=== PATIENT | male | born 1965 | race Caucasian/White ===

== ENCOUNTER → 2017-09-27 | Outpatient (CLI) | payer BC ==
--- NOTE | 2017-09-27 12:42 | US ---
EXAMINATION TYPE: US abdomen complete DATE OF EXAM: 09/27/2017 COMPARISON: NONE CLINICAL HISTORY: R10.9 Abdominal pain. EXAM MEASUREMENTS: Liver Length: 13.7 cm Gallbladder Wall: 0.3 cm CBD: 0.3 cm Spleen: 12.5 cm Right Kidney: 10.8 x 4.7 x 5.4 cm Left Kidney: 12.4 x 6.3 x 5.2 cm Extensive midline bowel gas Pancreas: Obscured by bowel gas Liver: wnl Gallbladder: mobile small stones vs echogenic debris Evidence for sonographic Milian's sign: no CBD: wnl Spleen: wnl Right Kidney: wnl Left Kidney: prominent dromedary hump vs mass, measures approximately 3.1 cm in diameter. Upper IVC: wnl Abd Aorta: Portions visualized wnl, mostly obscured by overlying bowel gas IMPRESSION: 1. Cholelithiasis and/or sludge. 2. Isoechoic rounded exophytic area in the mid left kidney. Dromedary hump is within the differential . Underlying mass is not entirely excluded. Recommend contrast CT for additional evaluation.
== END | disposition home or self-care (01) ==
LOC: RADUSWWP 07:29
PROVIDERS: ATTEND Family Medicine
DX: R93.422 Abnormal radiologic findings on diagnostic imaging of left kidney (principal)
CPT/HCPCS: 76700

== ENCOUNTER 2019-05-19 18:45 | Emergency (ER) | payer BC ==
[2019-05-19] MEDS ORDERED: IBUPROFEN 600 MG TAB PO STA (19:07)
[2019-05-19] MEDS ORDERED: ACETAMINOPHEN TAB 500 MG TAB PO STA (19:07)
--- NOTE | 2019-05-19 19:16 | ED ---
General Adult HPI - General Source: patient, RN notes reviewed, old records reviewed Mode of arrival: ambulatory Limitations: no limitations <Edward Day - Last Filed: 05/19/19 20:11> - History of Present Illness -: days(s) (9) Location: chest Radiation: non-radiation, other (No pain) Consistency: intermittent Improves with: none Worsens with: movement Associated Symptoms: cough, fever/chills, loss of appetite, nausea/vomiting, shortness of breath <Edward Powell - Last Filed: 05/19/19 21:57> - General Chief complaint: Fever Stated complaint: fever/cough Time Seen by Provider: 05/19/19 18:47 - History of Present Illness Initial comments: This is a 53-year-old male who presents to the emergency department with a 9 day history of cough. Patient states he was tested for coronavirus on Saturday but has not found his results back from [facility]. 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 Patient states last night he was in the bathroom passed out woke up had considerable amount of diarrhea and then woke up today with a fever and felt more short of breath so he decided come to the emergency department to be further evaluated. Patient denies any chest pain. Patient denies any lightheadedness or dizziness today. Patient denies abdominal pain patient denies nausea vomiting. (Edward Day) - Related Data Home Medications Medication Instructions Recorded Confirmed Acetaminophen Tab [Tylenol] 650 mg PO Q4H PRN 05/19/19 05/19/19 Hydrochlorothiazide [Hydrodiuril] 25 mg PO DAILY 05/19/19 05/19/19 Losartan Potassium 100 mg PO DAILY 05/19/19 05/19/19 Meloxicam [Mobic] 15 mg PO DAILY 05/19/19 05/19/19 Previous Rx's Medication Instructions Recorded Azithromycin [Zithromax Z-pack] 0 mg PO DIRECTED #1 pack 05/19/19 Allergies Allergy/AdvReac Type Severity Reaction Status Date / Time No Known Allergies Allergy Verified 05/19/19 19:33 Review of Systems ROS Other: All systems not noted in ROS Statement are negative. <Edward Day - Last Filed: 05/19/19 20:11> ROS Other: All systems not noted in ROS Statement are negative. <Edward Powell - Last Filed: 05/19/19 21:57> ROS Statement: Those systems with pertinent positive or pertinent negative responses have been documented in the HPI. Past Medical History Past Medical History: No Reported History History of Any Multi-Drug Resistant Organisms: None Reported Past Surgical History: Bariatric Surgery Additional Past Surgical History / Comment(s): lap band Past Psychological History: No Psychological Hx Reported Smoking Status: Never smoker Past Alcohol Use History: Occasional Past Drug Use History: None Reported <Edward Day - Last Filed: 05/19/19 20:11> General Exam Limitations: no limitations <Edward Day - Last Filed: 05/19/19 20:11> - General Exam Comments Initial Comments: GENERAL: Patient is well-developed and well-nourished. Patient is nontoxic and well- hydrated and is in mild distress. ENT: Neck is soft and supple. No significant lymphadenopathy is noted. Oropharynx is clear. Moist mucous membranes. Neck has full range of motion without eliciting any pain. There is no thyroid enlargement and no masses were felt. EYES: The sclera were anicteric and conjunctiva were pink and moist. Extraocular movements were intact and pupils were equal round and reactive to light. Eyelids were unremarkable. PULMONARY: Patient's got crackles in both bases more on the left than the right CARDIOVASCULAR: There is a regular rate and rhythm without any murmurs gallops or rubs. ABDOMEN: Soft and nontender with normal bowel sounds. SKIN: Skin is clear with no lesions or rashes and otherwise unremarkable. NEUROLOGIC: Patient is alert and oriented x3. Cranial nerves II through XII are grossly intact. Motor and sensory are also intact. Normal speech, volume and content. Symmetrical smile. MUSCULOSKELETAL: Normal extremities with adequate strength and full range of motion. LYMPHATICS: No significant lymphadenopathy is noted PSYCHIATRIC: Normal psychiatric evaluation. (Edward Day) Course <Edward Powell - Last Filed: 05/19/19 21:57> Vital Signs 05/19/19 05/19/19 18:47 21:04 Temperature 101.3 F H 100.4 F H Pulse Rate 103 H 85 Respiratory 22 18 Rate Blood Pressure 141/85 134/91 O2 Sat by Pulse 97 97 Oximetry - Reevaluation(s) Reevaluation #1: 05/19/19 21:56 Medical records reviewed (Edward Powell) Reevaluation #2: 05/19/19 21:56 Patient at length regarding symptoms informed of findings (Edward Powell) Reevaluation #3: 05/19/19 21:56 Patient reassessed with no significant difficulties in breathing, decision- making patient would like discharge at this time and return if symptoms worsen (Edward Powell) Medical Decision Making - Lab Data Result diagrams: 05/19/19 19:05 05/19/19 19:05 <Edward Day - Last Filed: 05/19/19 20:11> - Lab Data Result diagrams: 05/19/19 19:05 05/19/19 19:05 - Radiology Data Radiology results: report reviewed (Chest x-ray maybe bilateral changes, CT chest is positive for covid type findings), image reviewed <Edward Powell - Last Filed: 05/19/19 21:57> - Medical Decision Making EKG shows normal sinus rhythm at 96 bpm NC interval 148 QRSs 84 QT interval 344 QTC is 434. Patient's EKG shows no ST segment elevation or depression. Chest x-ray shows some atelectasis possibly a CAT scan will be done to further identify this. Dr. Powell will be taking over the care of this patient at 8:15. (Edward Day) 50 female DF for evaluation positive for hemoglobin symptomatic of COVID symptoms as well as time course as well as CT showing positive COVID findings. Patient is told to self 14 as he has been doing limit exposure family members which were also quarantined as well as to continue to monitor a stress test return if symptoms worsen patient's about shortness of breath currently believes he feels good, patient does have outpatient test which has been done for positive covert and is awaiting results. At this time will not test patient secondary to patient Muriel being tested, patient will be discharged home (Edward Powell) - Lab Data Lab Results 05/19/19 05/19/19 05/19/19 Range/Units 19:05 19:05 19:05 WBC 7.3 (3.8-10.6) k/uL RBC 5.17 (4.30-5.90) m/uL Hgb 15.7 (13.0-17.5) gm/dL Hct 44.7 (39.0-53.0) % MCV 86.3 (80.0-100.0) fL MCH 30.3 (25.0-35.0) pg MCHC 35.1 (31.0-37.0) g/dL RDW 13.2 (11.5-15.5) % Plt Count 233 (150-450) k/uL Neutrophils % 74 % Lymphocytes % 16 % Monocytes % 7 % Eosinophils % 0 % Basophils % 0 % Neutrophils # 5.4 (1.3-7.7) k/uL Lymphocytes # 1.2 (1.0-4.8) k/uL Monocytes # 0.5 (0-1.0) k/uL Eosinophils # 0.0 (0-0.7) k/uL Basophils # 0.0 (0-0.2) k/uL PT 10.5 (9.0-12.0) sec INR 1.0 (<1.2) APTT 24.2 (22.0-30.0) sec Sodium 138 (137-145) mmol/L Potassium 3.9 (3.5-5.1) mmol/L Chloride 97 L (98-107) mmol/L Carbon Dioxide 31 H (22-30) mmol/L Anion Gap 10 mmol/L BUN 15 (9-20) mg/dL Creatinine 1.00 (0.66-1.25) mg/dL Est GFR (CKD-EPI)AfAm >90 (>60 ml/min/1.73 sqM) Est GFR (CKD-EPI)NonAf 86 (>60 ml/min/1.73 sqM) Glucose 114 H (74-99) mg/dL Plasma Lactic Acid [place] (0.7-2.0) mmol/L Calcium 9.0 (8.4-10.2) mg/dL Total Bilirubin 0.6 (0.2-1.3) mg/dL AST 74 H (17-59) U/L ALT 39 (4-49) U/L Alkaline Phosphatase 46 (38-126) U/L Troponin I (0.000-0.034) ng/mL Total Protein 7.6 (6.3-8.2) g/dL Albumin 4.3 (3.5-5.0) g/dL Urine Color Urine Appearance (Clear) Urine pH (5.0-8.0) Ur Specific [place] (1.001-1.035) Urine Protein (Negative) Urine Glucose (UA) (Negative) Urine Ketones (Negative) Urine Blood (Negative) Urine Nitrite (Negative) Urine Bilirubin (Negative) Urine Urobilinogen (<2.0) mg/dL Ur Leukocyte Esterase (Negative) Urine RBC (0-5) /hpf Urine WBC (0-5) /hpf Hyaline Casts (0-2) /lpf Urine Mucus (None) /hpf 05/19/19 05/19/19 05/19/19 Range/Units 19:05 19:05 20:00 WBC (3.8-10.6) k/uL RBC (4.30-5.90) m/uL Hgb (13.0-17.5) gm/dL Hct (39.0-53.0) % MCV (80.0-100.0) fL MCH (25.0-35.0) pg MCHC (31.0-37.0) g/dL RDW (11.5-15.5) % Plt Count (150-450) k/uL Neutrophils % % Lymphocytes % % Monocytes % % Eosinophils % % Basophils % % Neutrophils # (1.3-7.7) k/uL Lymphocytes # (1.0-4.8) k/uL Monocytes # (0-1.0) k/uL Eosinophils # (0-0.7) k/uL Basophils # (0-0.2) k/uL PT (9.0-12.0) sec INR (<1.2) APTT (22.0-30.0) sec Sodium (137-145) mmol/L Potassium (3.5-5.1) mmol/L Chloride (98-107) mmol/L Carbon Dioxide (22-30) mmol/L Anion Gap mmol/L BUN (9-20) mg/dL Creatinine (0.66-1.25) mg/dL Est GFR (CKD-EPI)AfAm (>60 ml/min/1.73 sqM) Est GFR (CKD-EPI)NonAf (>60 ml/min/1.73 sqM) Glucose (74-99) mg/dL Plasma Lactic Acid [place] 1.1 (0.7-2.0) mmol/L Calcium (8.4-10.2) mg/dL Total Bilirubin (0.2-1.3) mg/dL AST (17-59) U/L ALT (4-49) U/L Alkaline Phosphatase (38-126) U/L Troponin I <0.012 (0.000-0.034) ng/mL Total Protein (6.3-8.2) g/dL Albumin (3.5-5.0) g/dL Urine Color Yellow Urine Appearance Clear (Clear) Urine pH 6.0 (5.0-8.0) Ur Specific [place] 1.044 H (1.001-1.035) Urine Protein 2+ H (Negative) Urine Glucose (UA) Negative (Negative) Urine Ketones Negative (Negative) Urine Blood Trace H (Negative) Urine Nitrite Negative (Negative) Urine Bilirubin Negative (Negative) Urine Urobilinogen 2.0 (<2.0) mg/dL Ur Leukocyte Esterase Negative (Negative) Urine RBC 1 (0-5) /hpf Urine WBC 1 (0-5) /hpf Hyaline Casts 3 H (0-2) /lpf Urine Mucus Many H (None) /hpf Disposition <Edward Day - Last Filed: 05/19/19 20:11> Is patient prescribed a controlled substance at d/c from ED?: No <Edward Powell - Last Filed: 05/19/19 21:57> Clinical Impression: Fever, Viral pneumonia Narrative: Exposure to COVID (Edward Powell) Disposition: HOME SELF-CARE Instructions (If sedation given, give patient instructions): Fever in Adults ( ED), Viral Pneumonia (ED) Referrals: Rizwana Brewer MD [Primary Care Provider] - 1-2 days
[2019-05-19 19:24] LABS: Basophils % (A) 0 %; Eosinophils % (A) 0 %; HCT 44.7 % (39.0-53.0); HGB 15.7 gm/dL (13.0-17.5); Lymphocytes # (A) 1.2 k/uL (1.0-4.8); Lymphocytes % (A) 16 %; MCH 30.3 pg (25.0-35.0); MCHC 35.1 g/dL (31.0-37.0); MCV 86.3 fL (80.0-100.0); Mean Platelet Volume 7.4; Monocytes # (A) 0.5 k/uL (0-1.0); Monocytes % (A) 7 %; Neutrophils # (A) 5.4 k/uL (1.3-7.7); Neutrophils % (A) 74 %; Platelet Count 233 k/uL (150-450); RBC 5.17 m/uL (4.30-5.90); RDW 13.2 % (11.5-15.5); WBC 7.3 k/uL (3.8-10.6)
[2019-05-19 19:32] LABS: Partial Thromboplastin Time 24.2 sec (22.0-30.0); Prothrombin Time 10.5 sec (9.0-12.0)
[2019-05-19 19:34] LABS: ALT 39 U/L (4-49); AST 74 U/L (17-59); African American GFR (CKD) >90 (>60 ml/min/1.73 sqM); Albumin 4.3 g/dL (3.5-5.0); Alkaline Phosphatase 46 U/L (38-126); Anion Gap 10 mmol/L; Blood Urea Nitrogen 15 mg/dL (9-20); Carbon Dioxide 31 mmol/L (22-30); Chloride 97 mmol/L (98-107); Glucose 114 mg/dL (74-99); Non-African American GFR(CKD) 86 (>60 ml/min/1.73 sqM); Potassium 3.9 mmol/L (3.5-5.1); Sodium 138 mmol/L (137-145); Total Bilirubin 0.6 mg/dL (0.2-1.3); Total Protein 7.6 g/dL (6.3-8.2)
[2019-05-19] MEDS: SODIUM CHLORIDE 0.9% 500 ML 500 ML IV SCH ×2 (19:43→22:02)
--- NOTE | 2019-05-19 19:56 | XR ---
EXAMINATION TYPE: XR chest 1V portable DATE OF EXAM: 05/19/2019 COMPARISON: NONE HISTORY: Fever, congestion TECHNIQUE: Single frontal view of the chest is obtained. FINDINGS: Patient is rotated. There are overlying cardiac leads. Exam is expiratory. Question some neil bsegmental basilar atelectatic change. There is no focal air space opacity, pleural effusion, or pneu mothorax seen. The cardiac silhouette size is within normal limits. The osseous structures are int act. IMPRESSION: Expiratory rotated exam. Follow-up as indicated. Possible subsegmental basilar atelectat ic changes.
[2019-05-19 20:14] LABS: Appearance,Urine Clear (Clear); Bilirubin,Urine Negative (Negative); Blood,Urine Trace (Negative); Color,Urine Yellow; Glucose,Urine (UA) Negative (Negative); Hyaline Casts,Urine 3 /lpf (0-2); Ketones,Urine Negative (Negative); Leukocyte Esterase,Urine Negative (Negative); Mucus,Urine Many /hpf; Nitrite,Urine Negative (Negative); Protein,Urine 2+ (Negative); RBC,Urine 1 /hpf (0-5); Specific Gravity,Urine 1.044 (1.001-1.035); WBC,Urine 1 /hpf (0-5)
[2019-05-19 21:04] VITALS: PULSE 85; RESP 18
--- NOTE | 2019-05-19 21:29 | CT ---
EXAMINATION TYPE: CT chest angio for PE DATE OF EXAM: 05/19/2019 COMPARISON: HISTORY: Shortness of breath. Cough. Tested for covid. CT DLP: 641.3 mGycm Automated exposure control for dose reduction was used. CONTRAST: CT Chest for pulmonary embolism performed with with IV Contrast, patient injected with 100 mL of Isov ue 370. FINDINGS: LUNGS: Multiple peripheral groundglass opacities are present within the lungs. MEDIASTINUM: There is satisfactory enhancement of the pulmonary artery and its branches, there is no CT evidence for pulmonary embolism. There are no greater than 1 cm hilar or mediastinal lymph nodes. No pericardial effusion is seen. AORTA: No additional significant abnormality is seen. OTHER: There is a spinal curvature present, thoracic spondylosis is present. Left hand is in place. IMPRESSION: Multiple peripheral groundglass opacities may be indicative of underlying viral pneumonia, covid infe ction.
[2019-05-19] MEDS ORDERED: AZITHROMYCIN 500 MG in SODIUM CHLORIDE 0.9% 250 ML IVPB STA (21:53)
[2019-05-19 23:37] VITALS: BP 138/79; TEMP 99.7
== END 2019-05-19 23:35 | disposition home or self-care (01) ==
LOC: EC 18:45
DX: J12.9 Viral pneumonia, unspecified (principal); J98.11 Atelectasis; Z20.828 Contact with and (suspected) exposure to other viral communicable diseases; Z98.84 Bariatric surgery status
CPT/HCPCS: 36415; 93005; 80053; 83605; 84484; 85025; 85610; 85730; 81001; 87040; 71045; 71275; 99284; 96365; 96367; J0456; J0696; Q9967

== ENCOUNTER → 2019-07-06 | Outpatient (CLI) | payer BC ==
[2019-07-06 12:27] LABS: Basophils % (A) 1 %; Eosinophils # (A) 0.1 k/uL (0-0.7); Eosinophils % (A) 1 %; HCT 47.1 % (39.0-53.0); Lymphocytes # (A) 1.7 k/uL (1.0-4.8); Lymphocytes % (A) 24 %; MCH 29.6 pg (25.0-35.0); MCHC 32.5 g/dL (31.0-37.0); MCV 91.3 fL (80.0-100.0); Mean Platelet Volume 6.8; Monocytes # (A) 0.4 k/uL (0-1.0); Monocytes % (A) 6 %; Neutrophils # (A) 4.7 k/uL (1.3-7.7); Neutrophils % (A) 66 %; Platelet Count 282 k/uL (150-450); RBC 5.16 m/uL (4.30-5.90); RDW 13.5 % (11.5-15.5)
[2019-07-06 12:38] LABS: HGB 15.3 gm/dL (13.0-17.5)
[2019-07-06 12:45] LABS: ALT 26 U/L (4-49); AST 20 U/L (17-59); African American GFR (CKD) >90 (>60 ml/min/1.73 sqM); Albumin 4.6 g/dL (3.5-5.0); Albumin/Globulin Ratio 1.4; Alkaline Phosphatase 42 U/L (38-126); Anion Gap 10 mmol/L; Blood Urea Nitrogen 12 mg/dL (9-20); Calcium 9.7 mg/dL (8.4-10.2); Carbon Dioxide 27 mmol/L (22-30); Chloride 100 mmol/L (98-107); Globulin 3.3 g/dL; Glucose 101 mg/dL (74-99); Non-African American GFR(CKD) >90 (>60 ml/min/1.73 sqM); Potassium 4.3 mmol/L (3.5-5.1); Sodium 137 mmol/L (137-145); Total Bilirubin 1.1 mg/dL (0.2-1.3); Total Protein 7.9 g/dL (6.3-8.2)
[2019-07-06 13:01] LABS: Creatine Kinase MB 1.3 ng/mL (0.0-2.4); Troponin I <0.012 ng/mL (0.000-0.034)
== END | disposition home or self-care (01) ==
LOC: LABWHC1 11:36
PROVIDERS: ATTEND Nurse Practitioner Adult Health
DX: R06.09 Other forms of dyspnea (principal); R07.9 Chest pain, unspecified
CPT/HCPCS: 36415; 80053; 82553; 83880; 84484; 85025; 85379

== ENCOUNTER → 2021-01-27 | Outpatient (CLI) | payer BC ==
--- NOTE | 2021-01-27 11:52 | CT ---
EXAMINATION TYPE: CT abdomen pelvis wo con DATE OF EXAM: 01/27/2021 COMPARISON: None INDICATION: left flank pain DLP: 672.1 mGycm, Automated exposure control for dose reduction was used. CONTRAST: 0 mL of Isovue 300. Study performed without Oral Contrast TECHNIQUE: Axial images were obtained from above the diaphragm to the pubic rami in the axial plane a t 5 mm thick sections. Reconstructed images are reviewed on the computer in the coronal plane. FINDINGS: Limited CT sections are obtained the lung bases. The lung bases are clear. Coronary calcifications present. CT ABDOMEN: LAP-BAND is present. Liver: Normal Spleen: Normal Pancreas: Normal Adrenal glands: The adrenal glands are normal. Gallbladder: Small gravel is present within the gallbladder. Kidneys: No masses are evident. No hydronephrosis is present. No cysts are present. Delayed images were obtained through the kidneys, which remain unremarkable. Aorta: Vascular calcification is within the aorta. Inferior vena cava: Normal. CT PELVIS: the left hemipelvis there is a punctate calcification measuring 0.3 cm. Series 4 image 12 6. Distal ureteral stone could be considered. However, no hydroureter is evident. No renal stones are identified. Loops of bowel within the abdomen and pelvis are normal. No changes to suggest acute diverticulitis a re evident. This study is performed without oral contrast limiting bowel evaluation. Appendix: Normal as visualized. Urinary bladder: Normal. Genitourinary structures: Mild prostate hypertrophy. Osseous structures: No suspicious lytic or sclerotic lesions. IMPRESSIONS: 1. Distal left nonobstructing ureteral stone is not excluded. However, no additional suspicious find ings to suggest ureteral or renal stones are evident. No hydronephrosis or hydroureter is present. 2. No suspicious etiology to account for left flank pain
== END | disposition home or self-care (01) ==
LOC: RADCTMAIN 11:16
PROVIDERS: ATTEND Physician Assistant
DX: R10.9 Unspecified abdominal pain (principal)
CPT/HCPCS: 74176

== ENCOUNTER 2021-01-28 17:36 | Emergency (ER) | payer BC ==
[2021-01-28 19:11] VITALS: BP 151/100; RESP 16; TEMP 99.1
--- NOTE | 2021-01-28 19:11 | ED ---
Lower Extremity Injury HPI <Li Perez - Last Filed: 01/28/21 19:20> - General Source: patient, family, RN notes reviewed, old records reviewed Mode of arrival: wheelchair Limitations: no limitations - History of Present Illness -: days(s) (2) Injury: Hip: Left Type of Injury: unknown Severity scale (1-10): 9 Improves With: immobilization Worsens With: movement, palpation Associated Symptoms: snap/pop sensation, able to partially bear weight Treatments Prior to Arrival: other (Tylenol #3, CT abd pelvis) <Ricki Mosley - Last Filed: 01/28/21 23:09> - General Stated Complaint: Lt Hip Pain Time Seen by Provider: 01/28/21 20:20 - History of Present Illness Initial Comments: 55 year-old male patient presents to the emergency department for evaluation of left hip pain. Patient states that he has had hip pain for the last two days. Denies any injury. States pain is worse with movement. States he did have outpatient CT abdomen and pelvis yesterday which was negative. He states he did have some nausea and vomiting but believes this is related to the pain. Denies fever or chills. (Li Perez) This is a well-appearing 55-year-old male, alert and oriented 4, presents to the emergency room with complaints of 2 days of left hip pain. Patient denies any injuries. Patient states he first felt the [place] The pain was in his left flank at that time and into his left testicle. He states the pain was severe enough that made him nauseous and he vomited. He denies any fevers. He did go to an clinic and they suspected a kidney stone. He seen his primary care doctor and had a CAT scan of the abdomen and pelvis done today. He states that there was a kidney stone but they said it was nonobstructing. He was placed on Flomax at that time. He states that he continues to have the left hip pain and is worse with walking. He denies any testicular pain at this time. (Ricki Mosley) - Related Data Home Medications Medication Instructions Recorded Confirmed Acetaminophen Tab [Tylenol] 650 mg PO Q4H PRN 05/19/19 05/20/19 Losartan Potassium 100 mg PO DAILY 05/19/19 05/20/19 Meloxicam [Mobic] 15 mg PO DAILY 05/19/19 05/20/19 hydroCHLOROthiazide [Hydrodiuril] 25 mg PO DAILY 05/19/19 05/20/19 Previous Rx's Medication Instructions Recorded Cefuroxime Axetil [Ceftin] 500 mg PO BID 5 Days #10 tab 05/23/19 Hydroxychloroquine Sulfate 200 mg PO BID 4 Days #8 tab 05/23/19 [Plaquenil] Cyclobenzaprine [Flexeril] 10 mg PO TID PRN #15 tab 01/28/21 Ibuprofen [Motrin] 600 mg PO Q8HR PRN #30 tab 01/28/21 Lidocaine [Lidoderm 5% Patch] 1 patch TRANSDERM DAILY 14 Days 01/28/21 #14 patch Allergies Allergy/AdvReac Type Severity Reaction Status Date / Time No Known Allergies Allergy Verified 01/28/21 19:10 Review of Systems ROS Other: All systems not noted in ROS Statement are negative. <Li Perez - Last Filed: 01/28/21 19:20> ROS Other: All systems not noted in ROS Statement are negative. <Ricki Mosley - Last Filed: 01/28/21 23:09> ROS Statement: Those systems with pertinent positive or pertinent negative responses have been documented in the HPI. Past Medical History Past Medical History: Hypertension History of Any Multi-Drug Resistant Organisms: None Reported Past Surgical History: Bariatric Surgery Additional Past Surgical History / Comment(s): lap band Past Anesthesia/Blood Transfusion Reactions: No Reported Reaction Past Psychological History: No Psychological Hx Reported Past Alcohol Use History: Occasional Past Drug Use History: None Reported - Past Family History family Family Medical History: No Reported History <Li Perez - Last Filed: 01/28/21 19:20> General Exam General appearance: alert, in no apparent distress Head exam: Present: atraumatic, normocephalic, normal inspection Eye exam: Present: normal appearance, EOMI ENT exam: Present: normal exam, normal oropharynx, mucous membranes moist Neck exam: Present: normal inspection, full ROM, lymphadenopathy. Absent: te nderness, meningismus Respiratory exam: Present: normal lung sounds bilaterally. Absent: respiratory distress, wheezes, rales, rhonchi, stridor, chest wall tenderness, accessory muscle use, decreased breath sounds Cardiovascular Exam: Present: regular rate, normal rhythm, normal heart sounds. Absent: systolic murmur, diastolic murmur, rubs, gallop, clicks GI/Abdominal exam: Present: soft, normal bowel sounds. Absent: distended, tenderness, guarding, rebound, rigid Left Hip exam: Present: normal inspection, tenderness. Absent: full ROM, swelling, laceration, ecchymosis, erythema Gait: observed and limited by pain Back exam: Present: normal inspection. Absent: CVA tenderness (R), CVA tenderness (L), muscle spasm, paraspinal tenderness, vertebral tenderness, rash noted Neurological exam: Present: alert, oriented X3 Psychiatric exam: Present: normal affect, normal mood Skin exam: Present: warm, dry, intact, normal color. Absent: rash, cyanosis, diaphoretic, erythema <Ricki Mosley - Last Filed: 01/28/21 23:09> Course Vital Signs 01/28/21 19:09 Temperature 99.1 F Pulse Rate 96 Respiratory 16 Rate Blood Pressure 151/100 O2 Sat by Pulse 96 Oximetry Medical Decision Making <Ricki Mosley - Last Filed: 01/28/21 23:09> - Medical Decision Making X-ray of the left hip and pelvis shows no acute fracture dislocation. There is mild osteoarthritic changes of the hips. Overlying soft tissue appears unr emarkable. CT of the abdomen and pelvis without contrast that was performed yesterday states a distal left nonobstructing ureteral stone is not excluded, there is no evidence of hydronephrosis or hydroureter. There is no evidence to suggest diverticulitis. Urinalysis today shows no evidence of protein or blood or signs of infection. Patient denies any testicular pain since the initial event 2 days ago. He states he did get some relief but then Vickery Norflex and Toradol. This is likely musculoskeletal in nature. He is able to ambulate. Denies any bowel or bladder incontinence, saddle anesthesia or fevers. He also denies any trauma. He was discharged home with the Lidoderm patch prescription, Motrin and Flexeril. Directed to follow up with his primary care doctor next week. Return to the emergency room with any new or concerning symptoms. Patient and family member are agreeable to this plan of care. Case discussed with Dr. Reid. (Ricki Mosley) - Lab Data Lab Results 01/28/21 Range/Units 22:20 Urine Color Yellow Urine Appearance Clear (Clear) Urine pH 5.5 (5.0-8.0) Ur Specific [place] 1.015 (1.001-1.035) Urine Protein Negative (Negative) Urine Glucose (UA) Negative (Negative) Urine Ketones Negative (Negative) Urine Blood Negative (Negative) Urine Nitrite Negative (Negative) Urine Bilirubin Negative (Negative) Urine Urobilinogen <2.0 (<2.0) mg/dL Ur Leukocyte Esterase Negative (Negative) Disposition <Li Perez - Last Filed: 01/28/21 19:20> Is patient prescribed a controlled substance at d/c from ED?: No Time of Disposition: 22:59 <Ricki Mosley - Last Filed: 01/28/21 23:09> Clinical Impression: Hip pain, left Disposition: HOME SELF-CARE Condition: Good Instructions (If sedation given, give patient instructions): Hip Pain (ED) Additional Instructions: Use the Motrin, Flexeril and Lidoderm patches as prescribed. Follow-up with the primary care doctor on Saturday. Return to the emergency room with any new or worsening symptoms. Prescriptions: Cyclobenzaprine [Flexeril] 10 mg PO TID PRN #15 tab PRN Reason: Muscle Spasm Lidocaine [Lidoderm 5% Patch] 1 patch TRANSDERM DAILY 14 Days #14 patch Ibuprofen [Motrin] 600 mg PO Q8HR PRN #30 tab PRN Reason: Pain Referrals: Ananth Blount MD [Primary Care Provider] - 1-2 days Facundo Lpoez PAC [PHYSICIAN PAINTER [employer] MAINTENANCE] - 1-2 days
--- NOTE | 2021-01-28 20:02 | XR ---
EXAMINATION TYPE: XR Hip LT and AP Pelvis DATE OF EXAM: 01/28/2021 COMPARISON: NONE HISTORY: Pain no injury TECHNIQUE: A single AP view of the pelvis is obtained. Two views of the left hip are obtained. FINDINGS: There is no acute fracture/dislocation evident in the pelvis. The hip and sacroiliac join ts appear symmetric and demonstrate mild degenerative changes. The overlying soft tissue appears unr emarkable. Two views of left hip show no acute fracture or dislocation. No focal lytic or sclerotic lesion seen in the proximal left femur. The overlying soft tissue is unremarkable. IMPRESSION: There is no acute fracture or dislocation in the pelvis or left hip with mild osteoarthr itic changes of the hips.
[2021-01-28] MEDS ORDERED: KETOROLAC 30 MG/ML 1 ML VIAL IM STA (21:26)
[2021-01-28] MEDS ORDERED: HYDROcodone/APAP 5-325MG 1 EACH TAB PO STA (21:27)
[2021-01-28] MEDS ORDERED: ORPHENADRINE 30 MG/ML 2 ML VIAL IM STA (21:27)
[2021-01-28 22:45] LABS: Appearance,Urine Clear (Clear); Bilirubin,Urine Negative (Negative); Blood,Urine Negative (Negative); Color,Urine Yellow; Glucose,Urine (UA) Negative (Negative); Ketones,Urine Negative (Negative); Leukocyte Esterase,Urine Negative (Negative); Nitrite,Urine Negative (Negative); PH, Urine 5.5 (5.0-8.0); Protein,Urine Negative (Negative); Specific Gravity,Urine 1.015 (1.001-1.035); Urobilinogen,Urine <2.0 mg/dL (<2.0)
[2021-01-28] MEDS ORDERED: LIDOCAINE 5% PATCH TOPICAL SCH (23:00)
[2021-01-28 23:17] VITALS: PULSE 87
== END 2021-01-28 23:17 | disposition home or self-care (01) ==
LOC: EC 17:36
DX: M25.552 Pain in left hip (principal); I10 Essential (primary) hypertension; Z79.1 Long term (current) use of non-steroidal anti-inflammatories (NSAID); Z79.899 Other long term (current) drug therapy
CPT/HCPCS: 81003; 73502; 96372 ×2; 99284; J2360; J1885

== ENCOUNTER 2021-05-07 22:43 | Inpatient (IN) | payer BC ==
[2021-05-08] MEDS ORDERED: SODIUM CHLORIDE 0.9% 1,000 ML IV STA (01:07)
[2021-05-08] MEDS ORDERED: ONDANSETRON 4 MG/2 ML VIAL IVP STA (01:07)
[2021-05-08] MEDS ORDERED: MORPHINE SULFATE 4 MG/ML SYRINGE IV STA (01:07)
[2021-05-08] MEDS ORDERED: ACETAMINOPHEN IV (For NPO) 1,000 MG in SALINE 100 100ML.BAG IVPB STA (01:12)
--- NOTE | 2021-05-08 01:17 | ED ---
Fever HPI - General Chief Complaint: Fever Stated Complaint: SOB, chest pain Time Seen by Provider: 05/08/21 00:59 Source: patient, RN notes reviewed Mode of arrival: ambulatory - History of Present Illness Initial Comments: This is a pleasant 55-year-old male who comes the ER complaining of upper abdominal burning, patient states that he started having pain in that area on . He then developed a fever and dry heaves. Patient has subsequently developed a mild cough and diarrhea. He denies any chest pain. Patient states the pain is now burning in nature across the upper abdomen. Patient indicates the epigastrium and right hypochondriac area of the most intense areas of discomfort. Patient previously has had gastric banding. No other abdominal surgeries. Patient states he had COVID-19 2 years ago. He is not immunized. No ill contacts or recent travel. Cough has been dry. Denies any significant shortness of breath. No problems with urination. No skin rashes or lesions. No sore throat. No earache. No neck stiffness. No headache. No arthralgias or myalgias. MD Complaint: fever - Related Data Home Medications Medication Instructions Recorded Confirmed Losartan/Hydrochlorothiazide 1 tab PO DAILY 01/28/21 01/28/21 [Losartan-Hctz 100-25 mg Tab] Tamsulosin HCl [Flomax] 0.4 mg PO DAILY 01/28/21 01/28/21 Previous Rx's Medication Instructions Recorded Cyclobenzaprine [Flexeril] 10 mg PO TID PRN #15 tab 01/28/21 Ibuprofen [Motrin] 600 mg PO Q8HR PRN #30 tab 01/28/21 Lidocaine [Lidoderm 5% Patch] 1 patch TRANSDERM DAILY 14 Days 01/28/21 #14 patch Allergies Allergy/AdvReac Type Severity Reaction Status Date / Time No Known Allergies Allergy Verified 05/07/21 22:56 Review of Systems ROS Statement: Those systems with pertinent positive or pertinent negative responses have been documented in the HPI. ROS Other: All systems not noted in ROS Statement are negative. Past Medical History Past Medical History: Hypertension History of Any Multi-Drug Resistant Organisms: None Reported Past Surgical History: Bariatric Surgery Additional Past Surgical History / Comment(s): lap band Past Anesthesia/Blood Transfusion Reactions: No Reported Reaction Past Psychological History: No Psychological Hx Reported Past Alcohol Use History: Occasional Past Drug Use History: None Reported - Past Family History family Family Medical History: No Reported History General Exam - General Exam Comments Initial Comments: Obese male in moderate distress. Patient appears to be mildly ill but not toxic. Capillary refill is less than 2 seconds. General appearance: alert, in no apparent distress Head exam: Present: atraumatic, normocephalic, normal inspection Eye exam: Present: normal appearance, PERRL, EOMI. Absent: scleral icterus, conjunctival injection, periorbital swelling ENT exam: Present: normal exam, mucous membranes moist Neck exam: Present: normal inspection. Absent: tenderness, meningismus, lymphadenopathy Respiratory exam: Present: normal lung sounds bilaterally. Absent: respiratory distress, wheezes, rales, rhonchi, stridor Cardiovascular Exam: Present: regular rate, normal rhythm, normal heart sounds. Absent: systolic murmur, diastolic murmur, rubs, gallop, clicks GI/Abdominal exam: Present: soft, normal bowel sounds. Absent: distended, tenderness, guarding, rebound, rigid Extremities exam: Present: normal inspection, full ROM, normal capillary refill. Absent: tenderness, pedal edema, joint swelling, calf tenderness Back exam: Present: normal inspection Neurological exam: Present: alert, oriented X3, CN II-XII intact Psychiatric exam: Present: normal affect, normal mood Skin exam: Present: warm, dry, intact, normal color. Absent: rash Course Vital Signs 05/07/21 03 22:56 01:49 Temperature 101.9 F H Pulse Rate 101 H 89 Respiratory 20 18 Rate Blood Pressure 189/100 161/81 O2 Sat by Pulse 98 88 L Oximetry - Reevaluation(s) Reevaluation #1: 05/08/21 01:47 Medical record is reviewed Symptoms somewhat improved, capillary refill less than 2 seconds Patient is informed of results and quere improved stions answered Patient in no distress Reevaluation #2: 05/08/21 02:48 Medical record is reviewed Computed tomography scan shows evidence of acute cholecystitis. Patient is informed of results and questions answered Patient in no distress Medical Decision Making - Medical Decision Making Patient presents to the emergency department with fever, chills, upper abdominal pain, dry heaving, and diarrhea. Symptoms consistent with probable gallbladder disease. However pancreatitis and intrathoracic etiology not out of the question. Computed tomography scan shows dilated gallbladder with mild edema surrounding the gallbladder consistent with acute cholecystitis. Normal appendix. Atelectasis in the left lower lobe. Gallbladder is distended with fat stranding around the gallbladder. Gallbladder measures 5 cm in diameter. Patient started on ceftriaxone and metronidazole here in the ER. Patient will be admitted, consultation the surgery will be made. - Lab Data Result diagrams: 05/08/21 01:37 05/08/21 01:37 Lab Results 05/07/21 05/08/21 05/08/21 Range/Units 23:03 01:37 01:37 WBC 15.5 H (3.8-10.6) k/uL RBC 5.00 (4.30-5.90) m/uL Hgb 15.5 (13.0-17.5) gm/dL Hct 45.9 (39.0-53.0) % MCV 91.6 (80.0-100.0) fL MCH 30.9 (25.0-35.0) pg MCHC 33.7 (31.0-37.0) g/dL RDW 13.1 (11.5-15.5) % Plt Count 263 (150-450) k/uL MPV 6.9 Neutrophils % 88 % Lymphocytes % 6 % Monocytes % 5 % Eosinophils % 1 % Basophils % 1 % Neutrophils # 13.6 H (1.3-7.7) k/uL Lymphocytes # 0.9 L (1.0-4.8) k/uL Monocytes # 0.7 (0-1.0) k/uL Eosinophils # 0.1 (0-0.7) k/uL Basophils # 0.1 (0-0.2) k/uL Sodium 138 (137-145) mmol/L Potassium 4.1 (3.5-5.1) mmol/L Chloride 102 (98-107) mmol/L Carbon Dioxide 23 (22-30) mmol/L Anion Gap 13 mmol/L BUN 16 (9-20) mg/dL Creatinine 0.95 (0.66-1.25) mg/dL Est GFR (CKD-EPI)AfAm >90 (>60 ml/min/1.73 sqM) Est GFR (CKD-EPI)NonAf >90 (>60 ml/min/1.73 sqM) Glucose 156 H (74-99) mg/dL Plasma Lactic Acid Carlitos (0.7-2.0) mmol/L Calcium 9.4 (8.4-10.2) mg/dL Total Bilirubin 1.0 (0.2-1.3) mg/dL AST 30 (17-59) U/L ALT 28 (4-49) U/L Alkaline Phosphatase 53 (38-126) U/L Troponin I (0.000-0.034) ng/mL C-Reactive Protein 6.0 H (<1.0) mg/dL Total Protein 7.9 (6.3-8.2) g/dL Albumin 4.5 (3.5-5.0) g/dL Lipase 187 (23-300) U/L Coronavirus (PCR) Not Detected (Not Detectd) 05/08/21 05/08/21 Range/Units 01:37 01:37 WBC (3.8-10.6) k/uL RBC (4.30-5.90) m/uL Hgb (13.0-17.5) gm/dL Hct (39.0-53.0) % MCV (80.0-100.0) fL MCH (25.0-35.0) pg MCHC (31.0-37.0) g/dL RDW (11.5-15.5) % Plt Count (150-450) k/uL MPV Neutrophils % % Lymphocytes % % Monocytes % % Eosinophils % % Basophils % % Neutrophils # (1.3-7.7) k/uL Lymphocytes # (1.0-4.8) k/uL Monocytes # (0-1.0) k/uL Eosinophils # (0-0.7) k/uL Basophils # (0-0.2) k/uL Sodium (137-145) mmol/L Potassium (3.5-5.1) mmol/L Chloride (98-107) mmol/L Carbon Dioxide (22-30) mmol/L Anion Gap mmol/L BUN (9-20) mg/dL Creatinine (0.66-1.25) mg/dL Est GFR (CKD-EPI)AfAm (>60 ml/min/1.73 sqM) Est GFR (CKD-EPI)NonAf (>60 ml/min/1.73 sqM) Glucose (74-99) mg/dL Plasma Lactic Acid [place] 1.0 (0.7-2.0) mmol/L Calcium (8.4-10.2) mg/dL Total Bilirubin (0.2-1.3) mg/dL AST (17-59) U/L ALT (4-49) U/L Alkaline Phosphatase (38-126) U/L Troponin I <0.012 (0.000-0.034) ng/mL C-Reactive Protein (<1.0) mg/dL Total Protein (6.3-8.2) g/dL Albumin (3.5-5.0) g/dL Lipase (23-300) U/L Coronavirus (PCR) (Not Detectd) - EKG Data EKG Comments: EKG done at 2308 100 attending physician reveals incomplete right bundle-branch block with normal intervals, ventricular rate of 90, RSR pattern seen in lead V1 but not elsewhere. No evidence of acute ST or T-wave changes. Minimal artifact. Critical Care Time Critical Care Time: Yes (35) Critical Care Time: Multiple re-evaluations of the patient. Evaluation of diagnostics. Discussion with both the on-call surgeon and the hospitalist physician. Sepsis. Disposition Clinical Impression: Sepsis, Acute cholecystitis Disposition: ADMITTED IP TO THIS HOSP Condition: Fair Referrals: Ananth Blount MD [Primary Care Provider] - 1-2 days Time of Disposition: 02:52 Decision to Admit Reason: Admit from EC Decision Date: 05/08/21 Decision Time: 02:53
[2021-05-08 01:50] LABS: Basophils # (A) 0.1 k/uL (0-0.2); Basophils % (A) 1 %; Eosinophils # (A) 0.1 k/uL (0-0.7); Eosinophils % (A) 1 %; HCT 45.9 % (39.0-53.0); HGB 15.5 gm/dL (13.0-17.5); Lymphocytes # (A) 0.9 k/uL (1.0-4.8); Lymphocytes % (A) 6 %; MCH 30.9 pg (25.0-35.0); MCHC 33.7 g/dL (31.0-37.0); MCV 91.6 fL (80.0-100.0); Mean Platelet Volume 6.9; Monocytes # (A) 0.7 k/uL (0-1.0); Monocytes % (A) 5 %; Neutrophils # (A) 13.6 k/uL (1.3-7.7); Neutrophils % (A) 88 %; Platelet Count 263 k/uL (150-450); RDW 13.1 % (11.5-15.5); WBC 15.5 k/uL (3.8-10.6)
[2021-05-08 02:05] LABS: ALT 28 U/L (4-49); AST 30 U/L (17-59); African American GFR (CKD) >90 (>60 ml/min/1.73 sqM); Albumin 4.5 g/dL (3.5-5.0); Alkaline Phosphatase 53 U/L (38-126); Anion Gap 13 mmol/L; Blood Urea Nitrogen 16 mg/dL (9-20); Calcium 9.4 mg/dL (8.4-10.2); Carbon Dioxide 23 mmol/L (22-30); Chloride 102 mmol/L (98-107); Glucose 156 mg/dL (74-99); Lipase 187 U/L (23-300); Non-African American GFR(CKD) >90 (>60 ml/min/1.73 sqM); Potassium 4.1 mmol/L (3.5-5.1); Sodium 138 mmol/L (137-145); Total Protein 7.9 g/dL (6.3-8.2)
--- NOTE | 2021-05-08 02:37 | CT ---
EXAMINATION TYPE: CT abdomen pelvis w con DATE OF EXAM: 05/08/2021 COMPARISON: 01/27/2021 HISTORY: pain CT DLP: 1887 mGycm Automated exposure control for dose reduction was used. CONTRAST: Performed with IV Contrast, patient injected with 100 mL of Isovue 300. Images obtained from the diaphragm to the floor the pelvis with IV contrast. The lung bases show subsegmental atelectasis left lower lobe. Heart size is normal. There is no peric ardial effusion. Liver spleen appear intact. There is gastric sleeve. Stomach is intact. There is no evidence of pancreatic mass. There is a distended gallbladder with fat stranding around the gallbladd er. Gallbladder measures 5 cm in diameter. There is no adrenal mass. Kidneys show satisfactory contrast opacification. There is no hydronephrosi s. The ureters are not dilated. Delayed images show normal renal excretion. There is no retroperitone al adenopathy. The bladder distends smoothly. There is no inguinal hernia. Appendix appears normal. There is no mesenteric edema. There is no ascites or free air. There is no b owel obstruction. The lumbar vertebrae have normal alignment. There is no compression fracture. Bony pelvis is intact. The hip joints are intact. IMPRESSION: Dilated gallbladder with some mild edema around the gallbladder consistent with acute cholecystitis. This is a change compared to old exam. Normal appendix. Minimal subsegmental atelectasis left lower lobe.
--- NOTE | 2021-05-08 02:39 | XR ---
EXAMINATION TYPE: XR chest 2V DATE OF EXAM: 05/08/2021 COMPARISON: 11/13/2019 HISTORY: Short of breath. Fever. TECHNIQUE: FINDINGS: There is some mild linear density left lung base. Heart size is normal. There are no hilar masses. Mediastinum is normal. Bony thorax is intact. IMPRESSION: There is some mild atelectasis left lung base which is new compared to old exam. Normal h eart.
[2021-05-08] MEDS ORDERED: metroNIDAZOLE-NS PMX 500 MG in SALINE 1 100ML.BAG IVPB STA (02:43)
[2021-05-08] MEDS ORDERED: NALOXONE 0.4 MG/ML 1 ML VIAL IV PRN (03:08)
[2021-05-08] MEDS ORDERED: ONDANSETRON 4 MG/2 ML VIAL IVP PRN (03:08)
[2021-05-08] MEDS: SODIUM CHLORIDE 0.9% 1,000 ML IV SCH ×3 (04:06→20:14)
--- NOTE | 2021-05-08 04:48 | P.CONS ---
History of Present Illness - Reason for Consult Consult date: 05/08/21 - History of Present Illness The patient is a 55-year-old male with a PMH of hypertension who presents to the emergency room with complaints of abdominal pain. The patient reports that his pain started 4 days ago, was epigastric and right upper quadrant, nonradiating, worsened with food, 5 out of 10 of maximal intensity. He reports developing nausea with dry heaves earlier today as well as fever with chills. Also reports 2-3 loose bowel movements throughout the day today. Denied any history of such symptoms the past. He denied chest discomfort, shortness of breath, cough, headaches, weakness, numbness, tingling. CT abdomen and pelvis revealed findings consistent with acute cholecystitis. Chest x-ray was unremarkable. EKG showing sinus rhythm with an incomplete right bundle branch block at 90 bpm. Laboratory evaluation revealed a leukocytosis of 15.5, glucose 156, lactic acid 1.0. Review of systems: Pertinent positives and negatives as discussed in HPI, a complete review of systems was performed and all other systems are negative. Physical examination: General: non toxic, no distress, appears at stated age, obese Derm: no unusual rashes/lesions no unusual ecchymoses, warm, dry Head: atraumatic, normocephalic, symmetric Eyes: EOMI, no lid lag, anicteric sclera, pupils equal round reactive to light ENT: Nose and ears atraumatic, no thrush, no pharyngeal erythema Neck: No thyromegaly, no cervical lymphadenopathy, trachea midline, supple Mouth: no lip lesion, mucus membranes moist Cardiovascular: S1S2 reg, no murmur, positive posterior tibial pulse bilateral, no edema, capillary refill less than 2 seconds Lungs: CTA bilateral, no rhonchi, no rales , no accessory muscle use Abdominal: soft, mild right upper quadrant tenderness, no guarding, no appreciable organomegaly, normal bowel sounds Ext: no gross muscle atrophy, muscle strength 5 out of 5 in all 4 extremities grossly, no contractures, Neuro: CN II-XI grossly intact, light touch intact all 4 extremities, finger to nose within normal limits, Psych: Alert, oriented, appropriate affect Assessment/plan Chronic conditions: Hypertension -Continue with home meds Acute cholecystitis -Defer management including pain control to the primary surgery service -Patient currently receiving IV antibiotics and IV fluids -Nothing by mouth for now -Follow up cultures -Ultrasound gallbladder ordered Hyperglycemia -Check A1c DVT prophylaxis -Heparin subq Past Medical History Past Medical History: Hypertension History of Any Multi-Drug Resistant Organisms: None Reported Past Surgical History: Bariatric Surgery Additional Past Surgical History / Comment(s): lap band Past Anesthesia/Blood Transfusion Reactions: No Reported Reaction Past Psychological History: No Psychological Hx Reported Past Alcohol Use History: Occasional Past Drug Use History: None Reported - Past Family History family Family Medical History: No Reported History Medications and Allergies Home Medications Medication Instructions Recorded Confirmed Type Cyclobenzaprine [Flexeril] 10 mg PO TID PRN #15 tab 01/28/21 Rx Ibuprofen [Motrin] 600 mg PO Q8HR PRN #30 tab 01/28/21 Rx Lidocaine [Lidoderm 5% Patch] 1 patch TRANSDERM DAILY 14 Days 01/28/21 Rx #14 patch Losartan/Hydrochlorothiazide 1 tab PO DAILY 01/28/21 01/28/21 History [Losartan-Hctz 100-25 mg Tab] Tamsulosin HCl [Flomax] 0.4 mg PO DAILY 01/28/21 01/28/21 History Allergies Allergy/AdvReac Type Severity Reaction Status Date / Time No Known Allergies Allergy Verified 05/07/21 22:56 Physical Exam Vitals: Vital Signs Temp Pulse Resp BP Pulse Ox 05/08/21 03:46 99.5 F 90 16 148/78 95 05/08/21 01:49 89 18 161/81 88 L 05/07/21 22:56 101.9 F H 101 H 20 189/100 98 Intake and Output 05/07/21 05/07/21 05/08/21 14:59 22:59 06:59 Other: Weight 120.202 kg Results CBC & Chem 7: 05/08/21 01:37 05/08/21 01:37 Labs: Abnormal Lab Results - Last 24 Hours (Table) 05/08/21 05/08/21 Range/Units 01:37 01:37 WBC 15.5 H (3.8-10.6) k/uL Neutrophils # 13.6 H (1.3-7.7) k/uL Lymphocytes # 0.9 L (1.0-4.8) k/uL Glucose 156 H (74-99) mg/dL C-Reactive Protein 6.0 H (<1.0) mg/dL
--- NOTE | 2021-05-08 08:44 | US ---
EXAMINATION TYPE: US gallbladder DATE OF EXAM: 05/08/2021 COMPARISON: CT 05/08/2021, ultrasound 09/27/2017 CLINICAL HISTORY: Right upper quadrant abdominal pain. Abn Ct, abd pain EXAM MEASUREMENTS: Liver Length: 22.3 cm Gallbladder Wall: 0.5 cm CBD: 0.7 cm Right Kidney: 10.4 x 5.7 x 5.7 cm Pancreas: wnl Liver: difficult to penetrate and enlarged Gallbladder: multiple stones with sludge and wall thickening, hydropic Evidence for sonographic Milian's sign: yes CBD: wnl Right Kidney: wnl IMPRESSION: Correlate for cholecystitis, there is cholelithiasis. Hepatocellular disease, possible he patic steatosis, there is hepatomegaly, dilated common bile duct
[2021-05-08] MEDS ORDERED: metroNIDAZOLE-NS PMX 500 MG in SALINE 1 100ML.BAG IVPB SCH (09:00)
[2021-05-08 09:28] LABS: Mucus,Urine Occasional /hpf; RBC,Urine 3 /hpf (0-5); WBC,Urine <1 /hpf (0-5)
[2021-05-08] MEDS: PIPERACILLIN-TAZOBACTAM 3.375 GM in SODIUM CHLORIDE 0.9% 100 ML IVPB SCH ×3 (09:33→23:42)
[2021-05-08] MEDS: PANTOPRAZOLE 40 MG/10 ML VIAL IV SCH (09:33)
[2021-05-08 10:13] LABS: Appearance,Urine Clear (Clear); Bilirubin,Urine Negative (Negative); Blood,Urine Negative (Negative); Color,Urine Yellow; Glucose,Urine (UA) Negative (Negative); Ketones,Urine Negative (Negative); Leukocyte Esterase,Urine Negative (Negative); Nitrite,Urine Negative (Negative); PH, Urine 5.5 (5.0-8.0); Protein,Urine Trace (Negative); Urobilinogen,Urine <2.0 mg/dL (<2.0)
[2021-05-08 10:19] LABS: Specific Gravity,Urine >1.050 (1.001-1.035)
[2021-05-08 10:56] LABS: HCT 42.4 % (39.6-50.0); HGB 13.7 g/dL (13.0-17.0); MCH 29.7 pg (27.0-32.0); MCHC 32.3 g/dL (32.0-37.0); NRBC Per 100 WBC 0 /100 WBCS (0.0-0.0); Platelet Count 244 X 10*3/uL (140-440); RBC 4.61 X 10*6/uL (4.40-5.60); RDW 13.2 % (11.5-14.5)
[2021-05-08 11:08] LABS: Anion Gap 10.3 mmol/L (10.00-18.00); BUN/Creat Ratio 12.56 Ratio (12.00-20.00); Blood Urea Nitrogen 11.3 mg/dL (9.0-27.0); Calcium 8.9 mg/dL (8.7-10.3); Carbon Dioxide 24.7 mmol/L (20.0-27.5); Non-African American GFR(CKD) 95.8 (60.0-200.0); Potassium 4.1 mmol/L (3.5-5.5)
--- NOTE | 2021-05-08 12:23 | P.GSHP ---
History of Present Illness H&P Date: 05/08/21 55-year-old male presented to the emergency department with complaints of upper abdominal pain. He states that he also began developing fever and nausea and dry heaving. He described the pain as burning. He did have a work-up with CT of the abdomen pelvis concerning for acute cholecystitis due to fat stranding around the gallbladder. He states that he did have a previous gallbladder attack many years ago. He states that he has had previous lap band procedure. He denies any additional abdominal procedures. - Review of Systems All systems: negative Past Medical History Past Medical History: Hypertension Additional Past Medical History / Comment(s): 2020 covid pneumonia History of Any Multi-Drug Resistant Organisms: None Reported Past Surgical History: Bariatric Surgery Additional Past Surgical History / Comment(s): lap band Past Anesthesia/Blood Transfusion Reactions: No Reported Reaction Smoking Status: Never smoker - Past Family History Mother Family Medical History: No Reported History Father Family Medical History: Cancer Additional Family Medical History / Comment(s): esophageal cancer family Family Medical History: No Reported History Medications and Allergies Home Medications Medication Instructions Recorded Confirmed Type Losartan/Hydrochlorothiazide 1 tab PO DAILY 01/28/21 05/08/21 History [Losartan-Hctz 100-25 mg Tab] Allergies Allergy/AdvReac Type Severity Reaction Status Date / Time No Known Allergies Allergy Verified 05/08/21 07:59 Surgical - Exam Osteopathic Statement: *. No significant issues noted on an osteopathic structural exam other than those noted in the History and Physical/Consult. Vital Signs Temp Pulse Resp BP Pulse Ox 101.9 F H 101 H 20 189/100 98 05/07/21 22:56 05/07/21 22:56 05/07/21 22:56 05/07/21 22:56 05/07/21 22:56 - General no distress - Eyes normal ocular movement - ENT no hearing loss - Neck trachea midline - Respiratory normal respiratory effort - Abdomen Soft, tender to palpation in right upper quadrant, nondistended, no rebound, no guarding - Psychiatric oriented to time, oriented to person, oriented to place Results - Labs 05/08/21 08:17 05/08/21 08:17 Abnormal Lab Results - Last 24 Hours (Table) 05/08/21 05/08/21 05/08/21 Range/Units 01:37 01:37 07:02 WBC 15.5 H (3.8-10.6) k/uL MPV (9.5-12.2) fL Neutrophils # 13.6 H (1.3-7.7) k/uL Lymphocytes # 0.9 L (1.0-4.8) k/uL Glucose 156 H (74-99) mg/dL C-Reactive Protein 6.0 H (<1.0) mg/dL Ur Specific [place] >1.050 H (1.001-1.035) Urine Protein Trace H (Negative) Urine Mucus Occasional H (None) /hpf 05/08/21 05/08/21 Range/Units 08:17 08:17 WBC 11.50 H (3.8-10.6) k/uL MPV 9.0 L (9.5-12.2) fL Neutrophils # (1.3-7.7) k/uL Lymphocytes # (1.0-4.8) k/uL Glucose 118 H (74-99) mg/dL C-Reactive Protein (<1.0) mg/dL Ur Specific [place] (1.001-1.035) Urine Protein (Negative) Urine Mucus (None) /hpf Diabetes panel 05/08/21 05/08/21 05/08/21 Range/Units 01:37 08:17 08:17 Sodium 138 141 (137-145) mmol/L Potassium 4.1 4.1 (3.5-5.1) mmol/L Chloride 102 106 (98-107) mmol/L Carbon Dioxide 23 24.7 (22-30) mmol/L BUN 16 11.3 (9-20) mg/dL Creatinine 0.95 0.9 (0.66-1.25) mg/dL Glucose 156 H 118 H (74-99) mg/dL Hemoglobin A1c 5.6 (0.0-6.0) % Calcium 9.4 8.9 (8.4-10.2) mg/dL AST 30 (17-59) U/L ALT 28 (4-49) U/L Alkaline Phosphatase 53 (38-126) U/L Total Protein 7.9 (6.3-8.2) g/dL Albumin 4.5 (3.5-5.0) g/dL Calcium panel 05/08/21 05/08/21 Range/Units 01:37 08:17 Calcium 9.4 8.9 (8.4-10.2) mg/dL Albumin 4.5 (3.5-5.0) g/dL Pituitary panel 05/08/21 05/08/21 Range/Units 01:37 08:17 Sodium 138 141 (137-145) mmol/L Potassium 4.1 4.1 (3.5-5.1) mmol/L Chloride 102 106 (98-107) mmol/L Carbon Dioxide 23 24.7 (22-30) mmol/L BUN 16 11.3 (9-20) mg/dL Creatinine 0.95 0.9 (0.66-1.25) mg/dL Glucose 156 H 118 H (74-99) mg/dL Calcium 9.4 8.9 (8.4-10.2) mg/dL Adrenal panel 05/08/21 05/08/21 Range/Units 01:37 08:17 Sodium 138 141 (137-145) mmol/L Potassium 4.1 4.1 (3.5-5.1) mmol/L Chloride 102 106 (98-107) mmol/L Carbon Dioxide 23 24.7 (22-30) mmol/L BUN 16 11.3 (9-20) mg/dL Creatinine 0.95 0.9 (0.66-1.25) mg/dL Glucose 156 H 118 H (74-99) mg/dL Calcium 9.4 8.9 (8.4-10.2) mg/dL Total Bilirubin 1.0 (0.2-1.3) mg/dL AST 30 (17-59) U/L ALT 28 (4-49) U/L Alkaline Phosphatase 53 (38-126) U/L Total Protein 7.9 (6.3-8.2) g/dL Albumin 4.5 (3.5-5.0) g/dL Assessment and Plan Plan: 55-year-old male with acute cholecystitis. Will begin the patient on antibiotics and keep the patient n.p.o. at this time. Ultrasound of the gallbladder was also reviewed with concerns for cholecystitis. Plan is for robotic cholecystectomy. This was discussed in depth with the patient and will be planned for tomorrow morning.
[2021-05-08] MEDS: HEPARIN SODIUM,PORCINE/PF 5,000 UNIT/0.5 ML SYRINGE SQ SCH ×2 (15:37→23:42)
[2021-05-08] MEDS: LACTATED RINGERS 1,000 ML IV SCH (21:25)
[2021-05-09] MEDS: SODIUM CHLORIDE 0.9% 1,000 ML IV SCH ×3 (04:34→22:28)
--- NOTE | 2021-05-09 08:11 | CDI ---
Documentation Clarification Form Date: 05/09/2021 07:59:39 AM From: Xi VazquezNaranjoNICOLE, CCDS Admit Date: 05/08/2021 03:58:00 AM Patient Name: Jarrod Tillman Visit Number: [id number] Discharge Date: ATTENTION: The Clinical Documentation Specialists (CDI) and [facility] Coding Staff appreciate your assistance in clarifying documentation. Please respond to the clarification below the line at the bottom and electronically sign. The CDI & [facility] Coding staff will review the response and follow-up if needed. Please note: Queries are made part of the Legal Health Record. If you have any questions, please contact the author of this message via ITS. Dr. John Rodrigues: The patient presented with the following clinical indicators. Upper abdominal pain, fever, nausea & dry heaving. CT of the Abdomen & Pelvis is concerning for Acute Cholecystitis. Additional clarification regarding the etiology/cause of the clinical indicators is requested. History/Risk Factors: Lap Band Surgery, Hypertension, COVID Pneumonia 2020. Family history of Esophageal Cancer. Clinical Indicators: Presented to the ED on 05/08 with Fever, SOB, Chest pain, burning abdominal pain & dry heaves, mild cough & diarrhea. Admit with Sepsis, Acute Cholecystitis. 05/07 VS: T 101.9, P 101, R 20, BP 189/100, PO 98 - 88 RA, BMI: 34.0 05/07 LAB: WBC 15.5, Neutrophils 13.6, Lymphocytes 0.9; glucose 156, CRP 6.0 05/08 UA: Clear, Specific [place] >1.050, Trace Protein. 05/07 COVID negative. 05/08 CT Abdomen & Pelvis: Dilated gallbladder with some mild edema around the gallbladder concern with acute cholecystitis. minimal subsegmental atelectasis left lower lobe. 05/08 CXR: Some mild atelectasis left lung base, new. 05/08 US Gallbladder: Correlate for cholecystitis, there is cholelithiasis. Hepatocellular disease, possible hepatic steatosis, there is hepatomegaly,dilated common bile duct Treatment 05/08: Blood Cultures x2, IV Morphine 4 mg x1, IV Zofran 4 mg x1, IV Na Cl 1,000 mls @ 999 mls/hr q1Hr, IV Tylenol 100 mls @ 400 mls/hr x1, IV Rocephin 50 mls @ 100 mls/hr x1, IV Flagyl 100 mls @ 10 mls/hr x1, IV Dilaudid 0.5 mg q3Hr, IV Na Cl 1,000 mls @ 130 mls/hr q7Hr, IV Zosyn 100 mls @ 25 mls/hr q8Hr. In your professional opinion, please clarify if these findings signify one of the following conditions: [ x ] Sepsis POA [ ] Sepsis, Not POA [ ] Sepsis ruled out [ ] Other, please specify [ ] Unable to determine (Template Last Reviewed: March 2020) DARLENE
[2021-05-09 09:10] LABS: Basophils # (A) 0.04 X 10*3/uL (0.00-0.10); Basophils % (A) 0.5 %; Eosinophils # (A) 0.23 X 10*3/uL (0.04-0.35); Eosinophils % (A) 2.9 %; HCT 40.2 % (39.6-50.0); HGB 13.1 g/dL (13.0-17.0); Immature Grans, Automated 0.5 %; Lymphocytes # (A) 1.49 X 10*3/uL (0.90-5.00); Lymphocytes % (A) 18.6 %; MCH 29.9 pg (27.0-32.0); MCHC 32.6 g/dL (32.0-37.0); MCV 91.8 fL (80.0-97.0); Mean Platelet Volume 8.7 fL (9.5-12.2); Monocytes # (A) 0.83 X 10*3/uL (0.20-1.00); Monocytes % (A) 10.4 %; NRBC Per 100 WBC 0 /100 WBCS (0.0-0.0); Neutrophils # (A) 5.38 X 10*3/uL (1.80-7.70); Neutrophils % (A) 67.1 %; Platelet Count 236 X 10*3/uL (140-440); RBC 4.38 X 10*6/uL (4.40-5.60); RDW 12.9 % (11.5-14.5); WBC 8.01 X 10*3/uL (4.50-10.00)
[2021-05-09 09:14] LABS: Albumin 3.7 g/dL (3.8-4.9); Albumin/Globulin Ratio 1.76 (1.60-3.17); Anion Gap 11.8 mmol/L (10.00-18.00); BUN/Creat Ratio 11.89 Ratio (12.00-20.00); Blood Urea Nitrogen 10.7 mg/dL (9.0-27.0); Calcium 8.9 mg/dL (8.7-10.3); Carbon Dioxide 26.2 mmol/L (20.0-27.5); Globulin 2.1 g/dL (1.6-3.3); Non-African American GFR(CKD) 95.8 (60.0-200.0); Potassium 4.1 mmol/L (3.5-5.5); Total Bilirubin 0.7 mg/dL (0.30-1.20); Total Protein 5.8 g/dL (6.2-8.2)
[2021-05-09] MEDS: HEPARIN SODIUM,PORCINE/PF 5,000 UNIT/0.5 ML SYRINGE SQ SCH ×2 (09:19→16:05)
[2021-05-09] MEDS: PANTOPRAZOLE 40 MG/10 ML VIAL IV SCH (09:43)
[2021-05-09] MEDS: PIPERACILLIN-TAZOBACTAM 3.375 GM in SODIUM CHLORIDE 0.9% 100 ML IVPB SCH ×2 (09:43→16:05)
[2021-05-09] MEDS ORDERED: LACTATED RINGERS 1,000 ML IV ONE ×2 (11:11→13:30)
[2021-05-09] MEDS ORDERED: NEOSTIGMINE 1 MG/ML 10 ML VIAL ONE (12:00)
[2021-05-09] MEDS ORDERED: HEPARIN SODIUM,PORCINE 5,000 UNIT/ML 1 ML VIAL SQ ONE (12:00)
[2021-05-09] MEDS ORDERED: LIDOCAINE 1% INJ 10MG/ML (20 ML MDV) ONE (12:00)
[2021-05-09] MEDS ORDERED: MIDAZOLAM 2 MG/2 ML VIAL ONE (12:00)
[2021-05-09] MEDS ORDERED: PROPOFOL 10 MG/ML 20 ML VIAL IV ONE (12:00)
[2021-05-09] MEDS ORDERED: SUCCINYLCHOLINE CHLORIDE 100 MG/5 ML SYR IV ONE (12:00)
[2021-05-09] MEDS ORDERED: GLYCOPYRROLATE 0.2 MG/ML 2 ML VIAL ONE (12:00)
[2021-05-09] MEDS ORDERED: HYDROmorphone (PF) 1 MG/ML ONE (12:00)
[2021-05-09] MEDS ORDERED: ROCURONIUM 10 MG/ML (5 ML VIAL) IV ONE (12:00)
[2021-05-09] MEDS ORDERED: fentaNYL (PF) 50 MCG/ML 2 ML AMP ONE (12:00)
[2021-05-09] MEDS ORDERED: BUPIVACAIN-EPI 0.25%-1:200,000 30 ML VIAL SQ ONE ×3 (12:15→12:26)
--- NOTE | 2021-05-09 13:44 | P.PN ---
Subjective Progress Note Date: 05/09/21 Principal diagnosis: abdominal pain Patient doing well, no fevers or chills, denied having any pain this morning. No nausea or vomiting. Objective - Vital Signs Vital signs: Vital Signs Temp 97.3 F L 05/09/21 11:14 Pulse 78 05/09/21 11:14 Resp 15 05/09/21 11:14 BP 175/87 05/09/21 11:14 Pulse Ox 97 05/09/21 11:14 Intake & Output 05/08/21 05/09/21 05/09/21 18:59 06:59 18:59 Intake Total 1660 50 Balance 1660 50 Weight 120.202 kg 120.2 kg Intake: IV 50 Intake, IV Titration 1660 Amount Piperacillin-Tazobactam 3 100 .375 gm In Sodium Chloride 0.9% 100 ml @ 25 mls/hr IVPB Q8HR [facility] Rx# :[id number] Sodium Chloride 0.9% 1, 1560 000 ml @ 130 mls/hr IV . Q7H42M [facility] Rx#:[id number] Other: # Voids 1 - Exam Constitutional: No acute distress, conversant, pleasant Eyes:Anicteric sclerae, moist conjunctiva, no lid-lag, PERRLA, ENMT: Oropharynx clear, no erythema, exudates Neck: Supple, FROM, no masses, or JVD, No carotid bruits, No thyromegaly Lungs: Clear to auscultation, Clear to percussion, Normal respiratory effort, no accessory muscle use Cardiovascular: Heart regular in rate and rhythm, No murmurs, gallops, or rubs, No peripheral edema Abdominal: Soft, Nontender, no guarding, rebound or rigidity, Normoactive bowel sounds, No hepatomegaly, No splenomegaly, No palpable mass Skin: Normal temperature, tone, texture, turgor, no induration, No subcutaneous nodules, No rash, lesions, No ulcers Extremities: No digital cyanosis, No clubbing, Pedal pulses intact and symmetrical, Radial pulses intact and symmetrical, No calf tenderness Psychiatric: Alert and oriented to person, place and time, appropriate affect, intact judgement Neuro: Muscles Strength 5/5 in all 4 extremities, Sensation to light touch grossly present throughout, Cranial nerves II-XII grossly intact, no focal sensory deficits - Labs CBC & Chem 7: 05/09/21 05:59 03/15/22 05:59 Labs: Abnormal Lab Results - Last 24 Hours (Table) 05/09/21 05/09/21 Range/Units 05:59 05:59 RBC 4.38 L (4.40-5.60) X 10*6/uL MPV 8.7 L (9.5-12.2) fL BUN/Creatinine Ratio 11.89 L (12.00-20.00) Ratio AST 10 L (14-35) U/L Total Protein 5.8 L (6.2-8.2) g/dL Albumin 3.7 L (3.8-4.9) g/dL Microbiology - Last 24 Hours (Table) 05/08/21 01:30 Blood Culture - Preliminary Blood No Growth after 24 hours 05/08/21 01:15 Blood Culture - Preliminary Blood No Growth after 24 hours Assessment and Plan Plan: Chronic conditions: Hypertension -Continue with home meds Acute cholecystitis -Cholecystectomy today -Patient currently receiving IV antibiotics and IV fluids -Nothing by mouth for now -Follow up cultures Hyperglycemia -A1c 5.6 DVT prophylaxis -Heparin subq
--- NOTE | 2021-05-09 13:59 | P.OP ---
Date of Procedure: 05/09/21 Preoperative Diagnosis: Acute cholecystitis Postoperative Diagnosis: Acute cholecystitis Procedure(s) Performed: Robotic cholecystectomy Anesthesia: SONAL Surgeon: John Rodrigues Pathology: other (Gallbladder and contents) Condition: stable Disposition: floor Indications for Procedure: 55-year-old male presented to the emergency department with acute abdominal pain. Workup was performed and patient was found to have acute cholecystitis with significant edema of the gallbladder wall and surrounding fat stranding on CT of the abdomen and pelvis. He also was noted to have a significantly tender exam. Patient was started on IV antibiotics with plan for robotic cholecystectomy. Patient was excellent risks, benefits and alternatives of procedure direct consent prior to attending the operating suite. Operative Findings: Significantly inflamed and thickened gallbladder Description of Procedure: The patient was brought to the operating suite and placed in supine position on the operating table. Sedation was provided by anesthesia and the patient underwent endotracheal intubation. He was then prepped and draped in regular sterile fashion. An infraumbilical incision was made and dissection was carried to the fascia. The fascia was incised and a 8 mm trocar was placed. Pneumoperitoneum was achieved. 2 additional 8 mm trochars were placed in the right lower quadrant and one was placed in the left upper quadrant. The patient was then positioned appropriately and the gallbladder was docked. The gallbladder was encountered and was noted to be significantly adhered to surrounding omental tissue. The gallbladder was grasped and bluntly dissected from the omentum and elevated. The gallbladder was then retracted superiorly and laterally. Dissection was carried with a [place] dissector to dissect the inflamed peritoneal tissue from the gallbladder. Cystic duct was then visualized and skeletonized. 2 clips were placed proximally and one was placed distally and the cystic duct was ligated. Similarly, after dissection the cystic artery was encountered. 2 clips were placed proximally one was placed distally and the cystic artery was ligated. Cautery was then used to dissect the gallbladder from the gallbladder fossa on the liver bed. Hemostasis was maintained. The gallbladder was then removed from the abdomen with a 5 mm Endo Catch bag. Copious muss irrigation was placed and suctioned in the right upper quadrant. Hemostasis was noted to continue to be maintained. NATE drain was then placed under the liver bed due to the significant inflammation. This was secured to the previous trocar site it was introduced from using a 3-0 nylon suture. The infraumbilical incision site fascia was then closed with 0 Vicryl suture under direct visualization using a Ted-Beatrice device. Pneumoperitoneum was evacuated and ports were removed. The port sites were then closed with 4-0 Vicryl subcutaneous suture. Sterile dressing was applied. The patient was awakened in the operating suite and taken to postanesthesia care unit in stable condition.
[2021-05-09] MEDS: HYDROcodone/APAP 5-325MG 1 EACH TAB PO PRN ×2 (16:03→22:25)
[2021-05-09] MEDS: LACTATED RINGERS 1,000 ML IV SCH (19:25)
[2021-05-10] MEDS: PIPERACILLIN-TAZOBACTAM 3.375 GM in SODIUM CHLORIDE 0.9% 100 ML IVPB SCH ×3 (00:04→16:22)
[2021-05-10] MEDS: HEPARIN SODIUM,PORCINE/PF 5,000 UNIT/0.5 ML SYRINGE SQ SCH ×3 (00:04→16:22)
[2021-05-10] MEDS: SODIUM CHLORIDE 0.9% 1,000 ML IV SCH ×3 (04:48→23:37)
[2021-05-10] MEDS: HYDROcodone/APAP 5-325MG 1 EACH TAB PO PRN ×2 (04:53→11:23)
[2021-05-10] MEDS: LOSARTAN-HCTZ 50-12.5 MG 1 EACH TAB PO SCH (08:10)
[2021-05-10] MEDS: PANTOPRAZOLE 40 MG/10 ML VIAL IV SCH (08:10)
[2021-05-10 09:32] LABS: Basophils # (A) 0.04 X 10*3/uL (0.00-0.10); Basophils % (A) 0.4 %; Eosinophils # (A) 0.17 X 10*3/uL (0.04-0.35); Eosinophils % (A) 1.7 %; HCT 40.5 % (39.6-50.0); HGB 13.2 g/dL (13.0-17.0); Immature Grans, Automated 0.3 %; Lymphocytes # (A) 1.08 X 10*3/uL (0.90-5.00); Lymphocytes % (A) 11.1 %; MCHC 32.6 g/dL (32.0-37.0); Mean Platelet Volume 8.6 fL (9.5-12.2); Monocytes # (A) 0.99 X 10*3/uL (0.20-1.00); Monocytes % (A) 10.2 %; NRBC Per 100 WBC 0 /100 WBCS (0.0-0.0); Neutrophils # (A) 7.42 X 10*3/uL (1.80-7.70); Neutrophils % (A) 76.3 %; Platelet Count 269 X 10*3/uL (140-440); RDW 12.7 % (11.5-14.5); WBC 9.73 X 10*3/uL (4.50-10.00)
[2021-05-10 10:50] LABS: African American GFR (CKD) 97.8 (60.0-200.0); Albumin 3.8 g/dL (3.8-4.9); Albumin/Globulin Ratio 1.73 (1.60-3.17); Anion Gap 12.2 mmol/L (10.00-18.00); BUN/Creat Ratio 11.3 Ratio (12.00-20.00); Blood Urea Nitrogen 11.3 mg/dL (9.0-27.0); Calcium 8.8 mg/dL (8.7-10.3); Carbon Dioxide 23.8 mmol/L (20.0-27.5); Globulin 2.2 g/dL (1.6-3.3); Non-African American GFR(CKD) 84.4 (60.0-200.0); Potassium 3.8 mmol/L (3.5-5.5); Total Bilirubin 0.8 mg/dL (0.30-1.20)
[2021-05-10] MEDS: HYDROmorphone 0.5 MG/0.5 ML SYRINGE IVP PRN ×2 (12:47→20:06)
--- NOTE | 2021-05-10 13:27 | P.PN ---
Subjective Progress Note Date: 05/10/21 Principal diagnosis: abdominal pain Doing well. No significant pain, no sob. No fevers. Objective - Vital Signs Vital signs: Vital Signs Temp 98.6 F 05/10/21 13:00 Pulse 88 05/10/21 13:00 Resp 20 05/10/21 13:00 BP 155/91 05/10/21 13:00 Pulse Ox 96 05/10/21 13:00 Intake & Output 05/09/21 05/10/21 05/10/21 18:59 06:59 18:59 Intake Total 1270 1770 Output Total 113 630 Balance 1157 1140 Weight 120.2 kg Intake: IV 1150 Intake, IV Titration 460 Amount Piperacillin-Tazobactam 3 100 .375 gm In Sodium Chloride 0.9% 100 ml @ 25 mls/hr IVPB Q8HR [facility] Rx# :[id number] Sodium Chloride 0.9% 1, 360 000 ml @ 130 mls/hr IV . Q7H42M [facility] Rx#:[id number] Oral 120 1310 Output: Drainage 30 Abdomen 30 Urine 100 600 Estimated Blood Loss 13 Other: # Voids 1 - Exam Constitutional: No acute distress, conversant, pleasant Eyes:Anicteric sclerae, moist conjunctiva, no lid-lag, PERRLA, ENMT: Oropharynx clear, no erythema, exudates Neck: Supple, FROM, no masses, or JVD, No carotid bruits, No thyromegaly Lungs: Clear to auscultation, Clear to percussion, Normal respiratory effort, no accessory muscle use Cardiovascular: Heart regular in rate and rhythm, No murmurs, gallops, or rubs, No peripheral edema Abdominal: Soft, Nontender, no guarding, rebound or rigidity, Normoactive bowel sounds, No hepatomegaly, No splenomegaly, No palpable mass Skin: Normal temperature, tone, texture, turgor, no induration, No subcutaneous nodules, No rash, lesions, No ulcers Extremities: No digital cyanosis, No clubbing, Pedal pulses intact and symmetrical, Radial pulses intact and symmetrical, No calf tenderness Psychiatric: Alert and oriented to person, place and time, appropriate affect, intact judgement Neuro: Muscles Strength 5/5 in all 4 extremities, Sensation to light touch grossly present throughout, Cranial nerves II-XII grossly intact, no focal sensory deficits - Labs CBC & Chem 7: 05/10/21 05:54 05/10/21 05:54 Labs: Abnormal Lab Results - Last 24 Hours (Table) 05/10/21 05/10/21 Range/Units 05:54 05:54 MPV 8.6 L (9.5-12.2) fL BUN/Creatinine Ratio 11.30 L (12.00-20.00) Ratio Glucose 145 H (70-110) mg/dL AST 48 H (14-35) U/L ALT 51 H (10-49) U/L Total Protein 6.0 L (6.2-8.2) g/dL Microbiology - Last 24 Hours (Table) 05/08/21 01:15 Blood Culture - Preliminary Blood No Growth after 48 hours 05/08/21 01:30 Blood Culture - Preliminary Blood No Growth after 48 hours Assessment and Plan Plan: Chronic conditions: Hypertension -Continue with home meds Acute cholecystitis -S/p cholecystectomy 05/09 -Patient currently receiving IV antibiotics and IV fluids -On clears -Blood cultures negative Hyperglycemia -A1c 5.6 DVT prophylaxis -Heparin subq
--- NOTE | 2021-05-10 13:51 | P.PN ---
Subjective Progress Note Date: 05/10/21 Principal diagnosis: Acute cholecystitis Patient seen and examined at bedside. Admits to persistent right upper quadrant pains, manageable with IV pain medication. On the hole feels a bit improved than on initial presentation. Right upper quadrant drain is in place with scant serosanguineous output, no evidence of bile leak. He's been tolerating scant full liquids. Denies fever or chills. He is up to chair, working with incentive spirometry. Appetite is poor, no reported nausea or emesis. Laboratory studies today show no evidence of leukocytosis, no significant elev ation of liver function studies, no signs of jaundice. Objective - Vital Signs Vital signs: Vital Signs Temp 98.6 F 05/10/21 13:00 Pulse 88 05/10/21 13:00 Resp 20 05/10/21 13:00 BP 155/91 05/10/21 13:00 Pulse Ox 96 05/10/21 13:00 Intake & Output 05/09/21 05/10/21 05/10/21 18:59 06:59 18:59 Intake Total 1270 1770 Output Total 113 630 Balance 1157 1140 Weight 120.2 kg Intake: IV 1150 Intake, IV Titration 460 Amount Piperacillin-Tazobactam 3 100 .375 gm In Sodium Chloride 0.9% 100 ml @ 25 mls/hr IVPB Q8HR [facility] Rx# :[id number] Sodium Chloride 0.9% 1, 360 000 ml @ 130 mls/hr IV . Q7H42M [facility] Rx#:[id number] Oral 120 1310 Output: Drainage 30 Abdomen 30 Urine 100 600 Estimated Blood Loss 13 Other: # Voids 1 - Constitutional General appearance: Present: obese - EENT Eyes: Present: EOMI, PERRLA ENT: Present: hearing grossly normal - Respiratory Respiratory: bilateral: CTA - Cardiovascular Rhythm: regular - Gastrointestinal Gastrointestinal Comment(s): Abdomen is soft with moderate focal right upper quadrant tenderness to pa lpation, no guarding or rebound, minimal distention without tympany. Right upper quadrant NATE drains in place with scant serosanguineous output. - Neurologic Neurologic: Present: CNII-XII intact - Musculoskeletal Musculoskeletal: Present: strength equal bilaterally - Psychiatric Psychiatric: Present: A&O x's 3, appropriate affect, intact judgment & insight - Labs CBC & Chem 7: 05/10/21 05:54 05/10/21 05:54 Labs: Abnormal Lab Results - Last 24 Hours (Table) 05/10/21 05/10/21 Range/Units 05:54 05:54 MPV 8.6 L (9.5-12.2) fL BUN/Creatinine Ratio 11.30 L (12.00-20.00) Ratio Glucose 145 H (70-110) mg/dL AST 48 H (14-35) U/L ALT 51 H (10-49) U/L Total Protein 6.0 L (6.2-8.2) g/dL Microbiology - Last 24 Hours (Table) 05/08/21 01:15 Blood Culture - Preliminary Blood No Growth after 48 hours 05/08/21 01:30 Blood Culture - Preliminary Blood No Growth after 48 hours Assessment and Plan Assessment: 55-year-old gentleman postoperative day 1 from robotic cholecystectomy for acute cholecystitis. Persistent pain requiring IV pain medications, minimal appetite and oral intake. No hard signs of sepsis. Plan: Continue with inpatient IV antibiotics overnight, anticipate discharge home tomorrow if no interval decline. Repeat laboratory studies, full liquids as tolerated for now. Plan low-fat diet for 2 weeks, follow-up with general surgery in the clinic within 1 week of discharge, with primary care within 2 weeks of discharge. No strenuous activity or heavy lifting over 10 pounds for 6 weeks postoperatively. May shower normally, will anticipate NATE drain removal on office follow-up. Time with Patient: Greater than 30
[2021-05-10] MEDS: LACTATED RINGERS 1,000 ML IV SCH (23:37)
[2021-05-11] MEDS: PIPERACILLIN-TAZOBACTAM 3.375 GM in SODIUM CHLORIDE 0.9% 100 ML IVPB SCH ×2 (00:17→08:55)
[2021-05-11] MEDS: HYDROcodone/APAP 5-325MG 1 EACH TAB PO PRN ×2 (00:18→08:57)
[2021-05-11] MEDS: HEPARIN SODIUM,PORCINE/PF 5,000 UNIT/0.5 ML SYRINGE SQ SCH ×2 (00:21→08:57)
[2021-05-11] MEDS: SODIUM CHLORIDE 0.9% 1,000 ML IV SCH ×2 (05:52→11:22)
[2021-05-11 06:26] VITALS: RESP 20
[2021-05-11] MEDS: PANTOPRAZOLE 40 MG/10 ML VIAL IV SCH (08:54)
[2021-05-11] MEDS: LOSARTAN-HCTZ 50-12.5 MG 1 EACH TAB PO SCH (08:55)
[2021-05-11 11:40] VITALS: BP 149/90; PULSE 76; TEMP 97.8
--- NOTE | 2021-05-11 12:59 | P.DS ---
Providers Date of admission: 05/08/21 03:58 Expected date of discharge: 05/11/21 Attending physician: John Rodrigues DO Consults: 05/08/21 03:17 Consult Physician Stat Consulting Provider: Ilda Sauer Consult Reason/Comments: Acute cholecystitis, medical management Do you want consulting provider notified?: Already Contacted Primary care physician: Ananth Garnett [facility] Course: 55-year-old male presented to the emergency department with complaints of upper abdominal pain. He states that he also began developing fever and nausea and dry heaving. He described the pain as burning. He did have a work-up with CT of the abdomen pelvis concerning for acute cholecystitis due to fat stranding around the gallbladder. He states that he did have a previous gallbladder keke ck many years ago. He states that he has had previous lap band procedure. He denies any additional abdominal procedures. The patient was started on IV antibiotics, admitted to the care of Dr. Wing with medicine consultation and arrangements made for robotic cholecystectomy the following day. Operative findings were consistent with acute cholecystitis. Drain was left in place and patient transferred back to the medical surgical floor for his convalescence. He had some pain the first postoperative day that had largely improved by the second postoperative day. Patient was discharged home with prescription for pain medication and a weeklong course of antibiotics with instructions to follow up with Dr. Rodrigues in 1 week, primary care and a similar timeframe. A drain was left in place which will likely be removed on his first postoperative visit. He was asked to abstain from any lifting over 10 pounds for 4-6 weeks, he may shower as normal. He was asked to continue with a soft bland low-fat diet for 2 weeks postoperatively. Discharged home in hemodynamically stable and afebrile condition with pain under adequate control. Procedures: Probiotic cholecystectomy this admission Patient Condition at Discharge: Fair Plan - Discharge Summary Discharge Rx Participant: No New Discharge Prescriptions: New HYDROcodone/APAP 5-325MG [[place] 5-325] 1 tab PO Q6HR PRN 3 Days #12 tab PRN Reason: Pain Amoxicillin/Potassium Clav [Augmentin 875-125 Tablet] 1 tab PO BID 7 Days #14 tab No Action Losartan/Hydrochlorothiazide [Losartan-Hctz 100-25 mg Tab] 1 tab PO DAILY Discharge Medication List Losartan/Hydrochlorothiazide [Losartan-Hctz 100-25 mg Tab] 1 tab PO DAILY 01/28/21 [History] Amoxicillin/Potassium Clav [Augmentin 875-125 Tablet] 1 tab PO BID 7 Days #14 tab 05/11/21 [Rx] HYDROcodone/APAP 5-325MG [[place] 5-325] 1 tab PO Q6HR PRN 3 Days #12 tab 05/11/21 [Rx] Follow up Appointment(s)/Referral(s): Ananth Blount MD [Primary Care Provider] - 1 Week John Rodrigues DO [Doctor of Osteopathic Medicine] - 1 Week Patient Instructions/Handouts: Low Fat Diet (DC), Laparoscopic Cholecystectomy (DC)
--- NOTE | 2021-05-11 20:49 | P.PN ---
Subjective Progress Note Date: 05/11/21 (delayed charting patient seen at 1300) Principal diagnosis: abdominal pain Patient is a 55-year-old male with a history of hypertension, obesity with BMI 34, and prior bariatric surgery who presented with abdominal pain was ultimately found to have acute cholecystitis. Patient underwent a robotic cholecystectomy. Patient seen and examined at bedside. Pain is tolerable. He is eating and drinking well. He had passed gas today. General: non toxic, no distress, appears at stated age Derm: warm, dry Head: atraumatic, normocephalic, symmetric Eyes: EOMI, no lid lag, anicteric sclera Mouth: no lip lesion, mucus membranes moist Cardiovascular: S1S2 reg, no murmur, positive posterior tibial pulse bilateral, Lungs: CTA bilateral, no rhonchi, no rales , no accessory muscle use Abdominal: soft, tender to palpation diffusely, NATE drain present with serosanguineous output, no guarding, no appreciable organomegaly Ext: no gross muscle atrophy, no edema, no contractures Neuro: CN II-XI grossly intact, no focal neuro deficits Psych: Alert, oriented, appropriate affect Acute cholecystitis status post cholecystectomy sepsis -Patient we discharged home with NAET drain in place. I provided education to the patient on how to empty his NATE drain and monitor his amount of fluid output. We discussed when to seek care including if this becomes purulent, the drainage increases, or he develops fevers. Plan-plan will be for him to follow-up with Dr. Rodrigues in 1 week. Hypertension -Resume losartan hydrochlorothiazide Obesity with BMI 34 -Status post lap band procedure Medically optimized for discharge. Case discussed with Dr. Carroll. Patient will complete a course of 7 days of postop Augmentin. Thank you for allowing us to participate in the care of this pleasant patient. Do not hesitate to contact us with questions. Someone can be reached from the [facility] hospitalist group all hours of the day at [phone] or via [employer]. Objective - Vital Signs Vital signs: Vital Signs Temp 97.8 F 05/11/21 11:39 Pulse 76 05/11/21 11:39 Resp 20 05/11/21 11:39 BP 149/90 05/11/21 11:39 Pulse Ox 93 L 05/11/21 11:39 Intake & Output 05/11/21 05/11/2122 06:59 18:59 06:59 Intake Total 800 Output Total 200 Balance 600 Intake: Intake, IV Titration 800 Amount Piperacillin-Tazobactam 3 200 .375 gm In Sodium Chloride 0.9% 100 ml @ 25 mls/hr IVPB Q8HR [facility] Rx# :[id number] Sodium Chloride 0.9% 1, 600 000 ml @ 130 mls/hr IV . Q7H42M [facility] Rx#:[id number] Output: Urine 200 Other: Voiding Method Toilet Toilet Urinal Urinal - Labs CBC & Chem 7: 05/10/21 05:54 05/10/21 05:54 Labs: Microbiology - Last 24 Hours (Table) 05/08/21 01:30 Blood Culture - Preliminary Blood No Growth after 72 hours 05/08/21 01:15 Blood Culture - Preliminary Blood No Growth after 72 hours
== END 2021-05-11 15:45 | disposition home or self-care (01) | DRG 854 ==
LOC: EC 22:43 → 5NMEDONC 05-08 03:58
PROVIDERS: ADMIT Surgery; ATTEND Surgery
PROC: 0FT44ZZ Resection of Gallbladder, Percutaneous Endoscopic Approach (ICD-10-PCS; principal; 2021-05-09 12:00)
PROC: 8E0W4CZ Robotic Assisted Procedure of Trunk Region, Percutaneous Endoscopic Approach (ICD-10-PCS; principal; 2021-05-09 12:00)
DX: A41.9 Sepsis, unspecified organism (principal); K81.0 Acute cholecystitis; J98.11 Atelectasis; Z20.822 Contact with and (suspected) exposure to COVID-19; I10 Essential (primary) hypertension; I45.10 Unspecified right bundle-branch block; R73.9 Hyperglycemia, unspecified; E66.9 Obesity, unspecified; Z68.34 Body mass index [BMI] 34.0-34.9, adult; Z79.899 Other long term (current) drug therapy; Z98.84 Bariatric surgery status; Z86.16 Personal history of COVID-19; Z87.01 Personal history of pneumonia (recurrent); Z80.0 Family history of malignant neoplasm of digestive organs
CPT/HCPCS: 36415; 71046; 74177; 76705; 80048; 80053; 81003; 83036; 83605; 83690; 84484; 85025; 85027; 86140; 87040; 87635; 88304; 96365; 96366; 96367; 96368; 96375; 99291